=== PATIENT | female | born 1960 | race Caucasian/White ===

== ENCOUNTER 2020-05-19 11:07 | Emergency (ER) | payer MEDICAID ==
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
[2020-05-19] MEDS: Sodium Chloride 0.9% 10 ML Syringe FLUSH PRN ×2 (12:57→13:06)
[2020-05-19] MEDS ORDERED: HYDROmorphone 0.5 MG/0.5 ML Syringe IVPUSH ONE (12:58)
[2020-05-19] MEDS ORDERED: Ondansetron 4 MG/2 ML SDV IVPUSH ONE (12:58)
[2020-05-19 13:30] LABS: HEMOGLOBIN A1C 6.4 %
[2020-05-19] MEDS ORDERED: Vancomycin 1.75 GM in Sodium Chloride 0.9% 500 ML IV ONE (14:00)
[2020-05-19] MEDS ORDERED: Vancomycin 2 GM in Sodium Chloride 0.9% 500 ML IV ONE (14:00)
[2020-05-19] MEDS ORDERED: Sodium Chloride 0.9% 1,000 ML IV ONE (14:51)
[2020-05-19] MEDS ORDERED: Piperacillin/Tazobactam 4.5 GM in Sodium Chloride 0.9% 100 ML IV ONE (14:51)
[2020-05-19] MEDS ORDERED: HYDROmorphone 0.5 MG/0.5 ML Syringe IVPUSH STA (15:49)
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
== END 2020-05-19 16:20 ==
LOC: JD.ED 11:07
DX: L03.115 Cellulitis of right lower limb (principal); L03.116 Cellulitis of left lower limb; Z20.822 Contact with and (suspected) exposure to COVID-19; Z68.43 Body mass index [BMI] 50.0-59.9, adult
CPT/HCPCS: 36415; 80053; 83036; 83605; 83735; 85025; 85610; 86140; 87040; 87075; 87205; 87635; 96365; 96366; 96368; 96375; 96376; 99284; J1170; J2405; J2543; J3370; J7030; J7040; 87077; 87186; U0002